=== PATIENT | male | born 1955 | race African-American/Black ===

== ENCOUNTER 2023-02-19 17:17 | Emergency (ER) | payer OTHER ==
[2023-02-19 17:33] VITALS: TEMP 98; BMI 34.5
[2023-02-19 18:43] VITALS: BP 164/94; PULSE 65; RESP 14
== END 2023-02-19 19:21 | disposition home or self-care (01) ==
LOC: JER 17:17
DX: I10 Essential (primary) hypertension (principal); G51.0 Bell's palsy; Z00.00 Encounter for general adult medical examination without abnormal findings
CPT/HCPCS: 93005; 93010; 99283-25